=== PATIENT | male | born 1960 | race African-American/Black ===

== ENCOUNTER 2022-04-10 08:43 | Emergency (ER) | payer SELFPAY ==
[~2022-04-10] VITALS: Ht 182.9 cm; Wt 91.0 kg
[2022-04-10] MEDS ORDERED: HALOPERIDOL LACTATE 5MG/ML VIAL IM STA (08:46)
[2022-04-10] MEDS ORDERED: MIDAZOLAM HCL 2 MG/2 ML VIAL IV ONE ×2 (09:45→11:30)
[2022-04-10 10:40] LABS: BASOPHILS % 0.7 % (0.0-2.0); EOSINOPHILS % 0.6 % (0.0-5.0); HEMOGLOBIN. 14.7 g/dL (14.0-18.0); LYMPHOCYTES % 12.2 % (20.0-50.0); MEAN CORPUSCULAR HEMOGLOBIN 31.4 pg (28.0-32.0); MEAN CORPUSCULAR VOLUME 95.9 fL (80.0-94.0); MEAN PLATELET VOLUME 8.6 fl (7.4-10.4); NEUTROPHILS % 81.5 % (40.0-76.0); PLATELET 220 x1000/uL (130-400); RED BLOOD CELL COUNT 4.69 mill/uL (4.7-6.1); RED CELL DISTRIBUTION WIDTH 14.4 % (11.6-14.6)
[2022-04-10 11:01] LABS: CHLORIDE 113 mEq/L (98-107)
[2022-04-10 11:12] LABS: ETHANOL BLOOD < 10 mg/dL
[2022-04-10 15:02] VITALS: BP 147/65
== END 2022-04-10 15:52 | disposition home or self-care (01) ==
LOC: EDBD 08:43 → ER 08:43
DX: G93.40 Encephalopathy, unspecified (principal); R51.9 Headache, unspecified; I10 Essential (primary) hypertension
CPT/HCPCS: 36415; 70450; 80053; 80320; 82962; 85025; 96372; 96374; 99285; J1630; J2250; Z7610; G0480

== ENCOUNTER 2024-09-02 18:16 | Emergency (ER) | payer MEDICAID ==
[~2024-09-02] VITALS: Ht 185.4 cm; Wt 111.0 kg
[2024-09-02 18:43] VITALS: O2SAT 100
[2024-09-02] MEDS: IBUPROFEN 600MG TABLET PO ONE (20:56)
[2024-09-02] MEDS ORDERED: IBUP-2029 MT (21:50)
[2024-09-02 22:01] VITALS: BP 139/72; PULSE 90; RESP 16; TEMP 37.1; O2SAT 100
== END 2024-09-02 22:02 | disposition home or self-care (01) ==
LOC: ER 18:16
DX: M79.18 Myalgia, other site (principal); M17.12 Unilateral primary osteoarthritis, left knee; Z79.899 Other long term (current) drug therapy; Z98.890 Other specified postprocedural states
CPT/HCPCS: 73030; 73502; 73560; 99284

== ENCOUNTER 2024-09-26 16:23 | Inpatient (IN) | payer MEDICAID ==
[~2024-09-26] VITALS: Ht 170.2 cm; Wt 91.6 kg
[~2024-09-26 16:23] MED LIST: IBUP-2029 MT
[2024-09-26] MEDS ORDERED: ACETAMINOPHEN WITH CODEINE 300/30MG TABLET PO ONE (17:45)
[2024-09-26 19:26] LABS: BASOPHILS % 0.8 % (0.0-2.0); EOSINOPHILS % 2.5 % (0.0-5.0); HEMATOCRIT. 39.3 % (42.0-52.0); LYMPHOCYTES % 17.5 % (20.0-50.0); MEAN CORPUSCULAR HEMOGLOBIN 30.8 pg (28.0-32.0); MEAN CORPUSCULAR HGB CONC 33.2 g/dL (31.0-37.0); MEAN CORPUSCULAR VOLUME 92.9 fL (80.0-94.0); MEAN PLATELET VOLUME 7.7 fl (7.4-10.4); MONOCYTES % 7.2 % (2.0-8.0); PLATELET 262 x1000/uL (130-400); RED BLOOD CELL COUNT 4.24 mill/uL (4.7-6.1); RED CELL DISTRIBUTION WIDTH 13.1 % (11.6-14.6); WHITE BLOOD COUNT 7.5 x1000/uL (4.5-11.0)
[2024-09-26 19:30] LABS: CHLORIDE 110 mEq/L (98-107); POTASSIUM 3.9 mEq/L (3.5-5.1); SODIUM 142 mEq/L (136-145)
[2024-09-26 19:31] LABS: CARBON DIOXIDE 26 mEq/L (21-32)
[2024-09-26 19:37] LABS: GLUCOSE 95 mg/dL (70-105); UREA NITROGEN BLOOD 16 mg/dL (9-23)
[2024-09-26] MEDS: ACETAMINOPHEN WITH CODEINE 300/30MG TABLET PO NR (19:47)
[2024-09-26] MEDS ORDERED: LORAZEPAM 0.5MG TABLET PO PRN (20:30)
[2024-09-26] MEDS ORDERED: CLONIDINE 0.1MG TABLET PO PRN (20:30)
[2024-09-26] MEDS ORDERED: ONDANSETRON HCL 4MG/2ML INJ IV PRN (20:30)
[2024-09-26] MEDS ORDERED: ACETAMINOPHEN 325MG TABLET PO PRN (20:30)
[2024-09-26] MEDS ORDERED: GUAIFENESIN 200MG/10ML SUGAR FREE UDC PO PRN (20:30)
[2024-09-26] MEDS ORDERED: IPRATROPIUM/ALBUTEROL 0.5-3(2.5)MG/3ML NEB HHN PRN (20:30)
[2024-09-26] MEDS ORDERED: DOCUSATE SODIUM 100MG CAPSULE PO PRN (20:30)
[2024-09-26] MEDS ORDERED: MAGNESIUM/ALUMINUM HYDROXIDE/SIMETHICONE 30ML UDC PO PRN (20:30)
[2024-09-26] MEDS: DIPHENHYDRAMINE 50MG/ML VIAL IV PRN (23:45)
[2024-09-27] VITALS (7 sets, daily range): BP systolic 105–140; BP diastolic 51–74; PULSE 81–95; RESP 18–20; TEMP 36–36.6; O2SAT 93–98
[2024-09-27] MEDS: HYDROCODONE/ACETAMINOPHEN 5/325MG TABLET PO PRN (10:19)
[2024-09-27] MEDS: ENOXAPARIN 40MG/0.4ML SYR SUBCUT SCH (10:19)
[2024-09-27 11:46] LABS: BASOPHILS % 0.6 % (0.0-2.0); EOSINOPHILS % 2.8 % (0.0-5.0); HEMATOCRIT. 40.8 % (42.0-52.0); LYMPHOCYTES % 16.3 % (20.0-50.0); MEAN CORPUSCULAR HGB CONC 31.9 g/dL (31.0-37.0); MEAN CORPUSCULAR VOLUME 93.8 fL (80.0-94.0); MEAN PLATELET VOLUME 8.2 fl (7.4-10.4); MONOCYTES % 6.3 % (2.0-8.0); PLATELET 250 x1000/uL (130-400); RED BLOOD CELL COUNT 4.35 mill/uL (4.7-6.1); RED CELL DISTRIBUTION WIDTH 13.5 % (11.6-14.6); WHITE BLOOD COUNT 6.8 x1000/uL (4.5-11.0)
[2024-09-27 11:53] LABS: CARBON DIOXIDE 27 mEq/L (21-32); CHLORIDE 108 mEq/L (98-107); POTASSIUM 3.8 mEq/L (3.5-5.1); SODIUM 144 mEq/L (136-145)
[2024-09-27 11:54] LABS: CALCIUM 8.9 mg/dL (8.7-10.4)
[2024-09-27 11:57] LABS: CREATINE KINASE MB FRACTION 1.6 ng/mL (0.5-3.6)
[2024-09-27 11:58] LABS: TROPONIN I HIGH SENSITIVITY 10 ng/L (3.0-53)
[2024-09-27 11:59] LABS: GLUCOSE 174 mg/dL (70-105); TRIGLYCERIDE 121 mg/dL (0-150); UREA NITROGEN BLOOD 14 mg/dL (9-23)
[2024-09-27 12:00] LABS: ALANINE AMINOTRANSFERASE 21 IU/L (10-49); ALBUMIN 3.3 g/dL (3.2-4.8); ASPARTATE AMINOTRANSFERASE 20 IU/L (<34); BILIRUBIN DIRECT 0.1 mg/dL (<=3.0); BILIRUBIN TOTAL 0.4 mg/dL (0.1-1.0); CREATINE KINASE 140 IU/L (46-171); LDL CHOLESTEROL 79 mg/dL (5-100); T4 FREE 1.18 ng/dL (0.89-1.76)
[2024-09-27 12:01] LABS: CHOLESTEROL 128 mg/dL (<200); HDL CHOLESTEROL 24 mg/dL (>55); PROTEIN TOTAL 5.9 g/dL (6.0-8.3); THYROID STIMULATING HORMONE 1.01 uIU/mL (0.55-4.78)
[2024-09-28] VITALS: BP 117/61; PULSE 92; RESP 20; TEMP 36.5; O2SAT 95
[2024-09-28 06:18] LABS: CARBON DIOXIDE 27 mEq/L (21-32); CHLORIDE 111 mEq/L (98-107); POTASSIUM 3.7 mEq/L (3.5-5.1); SODIUM 141 mEq/L (136-145)
[2024-09-28 06:20] LABS: CALCIUM 8.4 mg/dL (8.7-10.4)
[2024-09-28 06:24] LABS: CREATININE 0.8 mg/dL (0.6-1.3); GLUCOSE 121 mg/dL (70-105); UREA NITROGEN BLOOD 17 mg/dL (9-23)
[2024-09-28 06:27] LABS: PHOSPHORUS 3.2 mg/dL (2.5-4.9)
[2024-09-28 06:30] LABS: BASOPHILS % 0.6 % (0.0-2.0); EOSINOPHILS % 4.4 % (0.0-5.0); HEMATOCRIT. 38.8 % (42.0-52.0); HEMOGLOBIN. 12.9 g/dL (14.0-18.0); LYMPHOCYTES % 22.5 % (20.0-50.0); MEAN CORPUSCULAR HEMOGLOBIN 30.5 pg (28.0-32.0); MEAN CORPUSCULAR HGB CONC 33.3 g/dL (31.0-37.0); MEAN CORPUSCULAR VOLUME 91.8 fL (80.0-94.0); MEAN PLATELET VOLUME 7.8 fl (7.4-10.4); MONOCYTES % 8.4 % (2.0-8.0); NEUTROPHILS % 64.1 % (40.0-76.0); PLATELET 231 x1000/uL (130-400); RED BLOOD CELL COUNT 4.22 mill/uL (4.7-6.1); RED CELL DISTRIBUTION WIDTH 13.6 % (11.6-14.6); WHITE BLOOD COUNT 5.8 x1000/uL (4.5-11.0)
[2024-09-28 08:00] VITALS: BP 123/65; PULSE 75; RESP 18; TEMP 36.1; O2SAT 98
[2024-09-28 12:00] VITALS: BP 110/70; PULSE 76; RESP 18; TEMP 35.6; O2SAT 97
[2024-09-28 16:00] VITALS: BP 118/69; PULSE 78; RESP 18; TEMP 35.8; O2SAT 98
[2024-09-28 20:00] VITALS: BP 111/64; PULSE 81; RESP 17; TEMP 37.1; O2SAT 98
[2024-09-29] VITALS: BP 110/65; PULSE 82; RESP 18; TEMP 36.6; O2SAT 97
[2024-09-29 08:00] VITALS: BP 114/82; PULSE 87; RESP 19; TEMP 36.6; O2SAT 98
[2024-09-29] MEDS ORDERED: IBUP-2029 MT (11:28)
[2024-09-29 12:00] VITALS: BP 126/78; PULSE 78; RESP 18; TEMP 36.9; O2SAT 99
[2024-09-29 16:00] VITALS: BP 113/78; PULSE 81; RESP 18; TEMP 36.8; O2SAT 96
[2024-09-29 20:00] VITALS: BP 112/69; PULSE 71; RESP 18; TEMP 36.4; O2SAT 98
[2024-09-30] VITALS: BP 120/66; PULSE 87; RESP 17; TEMP 37; O2SAT 99
[2024-09-30 04:00] VITALS: BP 159/75; PULSE 75; RESP 19; TEMP 36.3; O2SAT 100
[2024-09-30 08:00] VITALS: BP 121/69; PULSE 81; RESP 18; TEMP 36; O2SAT 100
[2024-09-30 12:00] VITALS: BP 134/77; PULSE 87; RESP 18; TEMP 36.2; O2SAT 100
[2024-09-30 20:00] VITALS: BP 117/63; PULSE 84; RESP 20; TEMP 36.2; O2SAT 99
[2024-10-01] VITALS: BP 124/65; PULSE 75; RESP 19; TEMP 37.3; O2SAT 98
[2024-10-01] MEDS: IVERMECTIN 3 MG TABLET PO NR (01:43)
[2024-10-01] MEDS: PERMETHRIN 5% CREAM 60GM TOP NR (01:43)
[2024-10-01 04:00] VITALS: BP 110/71; PULSE 81; RESP 18; TEMP 36.6; O2SAT 100
[2024-10-01] MEDS: ACETAMINOPHEN 325MG TABLET PO PRN (05:04)
[2024-10-01 08:00] VITALS: BP 112/68; PULSE 84; RESP 18; TEMP 36.4; O2SAT 97
[2024-10-01 12:00] VITALS: BP 111/64; PULSE 86; RESP 19; TEMP 36.8; O2SAT 98
[2024-10-01 16:00] VITALS: BP 115/77; PULSE 82; RESP 18; TEMP 36.6; O2SAT 96
[2024-10-01 20:00] VITALS: BP 117/45; PULSE 86; RESP 18; TEMP 36.4; O2SAT 95
[2024-10-02] VITALS: BP 109/65; PULSE 80; RESP 18; TEMP 36.4; O2SAT 95
[2024-10-02] MEDS: HYDROCODONE/ACETAMINOPHEN 5/325MG TABLET PO NR (03:23)
[2024-10-02 04:00] VITALS: BP 121/50; PULSE 91; RESP 18; TEMP 36.2; O2SAT 95
[2024-10-02 07:23] LABS: CARBON DIOXIDE 23 mEq/L (21-32); CHLORIDE 106 mEq/L (98-107); POTASSIUM 4.1 mEq/L (3.5-5.1); SODIUM 136 mEq/L (136-145)
[2024-10-02 07:24] LABS: CALCIUM 9.2 mg/dL (8.7-10.4)
[2024-10-02 07:29] LABS: CREATININE 1.1 mg/dL (0.6-1.3); GLUCOSE 107 mg/dL (70-105); UREA NITROGEN BLOOD 26 mg/dL (9-23)
[2024-10-02 08:06] LABS: BASOPHILS % 0.6 % (0.0-2.0); EOSINOPHILS % 1.9 % (0.0-5.0); HEMATOCRIT. 42.2 % (42.0-52.0); LYMPHOCYTES % 16.7 % (20.0-50.0); MEAN CORPUSCULAR HEMOGLOBIN 30.4 pg (28.0-32.0); MEAN CORPUSCULAR HGB CONC 33.2 g/dL (31.0-37.0); MEAN CORPUSCULAR VOLUME 91.6 fL (80.0-94.0); MEAN PLATELET VOLUME 8.5 fl (7.4-10.4); MONOCYTES % 6.2 % (2.0-8.0); NEUTROPHILS % 74.6 % (40.0-76.0); PLATELET 265 x1000/uL (130-400); RED BLOOD CELL COUNT 4.61 mill/uL (4.7-6.1); RED CELL DISTRIBUTION WIDTH 13.5 % (11.6-14.6); WHITE BLOOD COUNT 8.5 x1000/uL (4.5-11.0)
[2024-10-02 12:00] VITALS: BP 117/72; PULSE 102; RESP 17; TEMP 36.4; O2SAT 95
[2024-10-02 16:00] VITALS: BP 120/70; PULSE 99; RESP 18; TEMP 36.5; O2SAT 96
[2024-10-02 20:00] VITALS: BP 114/65; PULSE 84; RESP 20; TEMP 35.8; O2SAT 95
[2024-10-03] VITALS: BP 95/63; PULSE 88; RESP 19; TEMP 35.8; O2SAT 95
[2024-10-03 04:00] VITALS: BP 150/73; PULSE 89; RESP 20; TEMP 35.9; O2SAT 95
[2024-10-03 08:00] VITALS: BP 130/86; PULSE 91; RESP 19; TEMP 36.4; O2SAT 97
[2024-10-03] MEDS ORDERED: IBUP-2029 MT (10:43)
[2024-10-03 11:13] VITALS: BP 132/84; PULSE 87; TEMP 97.6; O2SAT 98
== END 2024-10-03 11:20 | disposition home or self-care (01) | DRG 351 ==
LOC: ER 16:23 → EDBEDREQ 17:48 → 6EST 19:48 → EDBEDREQTM 19:52 → EDBEDREQ 19:52
PROVIDERS: ADMIT Internal Medicine; ATTEND Internal Medicine
DX: M17.12 Unilateral primary osteoarthritis, left knee (principal); B85.2 Pediculosis, unspecified; F17.210 Nicotine dependence, cigarettes, uncomplicated; D64.9 Anemia, unspecified; F41.9 Anxiety disorder, unspecified; Z20.822 Contact with and (suspected) exposure to COVID-19; M25.552 Pain in left hip; G89.29 Other chronic pain; Z59.00 Homelessness unspecified; Z78.9 Other specified health status
CPT/HCPCS: 36415; 72170; 73560; 80048; 80061; 80076; 82550; 82553; 83735; 84100; 84439; 84443; 84484; 85025; 87426; 93005; 93970; 97110; 97116; 97162; 97165; 99285; A4606; J1200; J1650

== ENCOUNTER 2024-10-21 13:53 | Emergency (ER) | payer MEDICAID ==
[~2024-10-21] VITALS: Ht 177.8 cm; Wt 91.0 kg
[2024-10-21 14:00] VITALS: O2SAT 99
[2024-10-21] MEDS ORDERED: IBUP-2029 MT (14:49)
[2024-10-21 15:10] VITALS: BP 135/83; PULSE 100; RESP 18; TEMP 37.2; O2SAT 98
== END 2024-10-21 15:15 | disposition home or self-care (01) ==
LOC: ER 13:53
DX: G89.29 Other chronic pain (principal); M79.602 Pain in left arm; R07.89 Other chest pain; I10 Essential (primary) hypertension; E03.9 Hypothyroidism, unspecified; Z79.899 Other long term (current) drug therapy
CPT/HCPCS: 99283